=== PATIENT | female | born 1930 | race Caucasian/White ===

== ENCOUNTER → 2017-06-16 | Outpatient (REF) | payer MEDICARE ==
[2017-06-16 14:12] LABS: FOLATE > 24.0 NG/ML; VITAMIN B12 LEVEL > 2000 PG/ML
[2017-06-16 14:20] LABS: FERRITIN 34 NG/ML (8-252); PERCENT SATURATION 23.2 % (13.2-45.0); TOTAL IRON BINDING CAPACITY 366 UG/DL (250-450)
== END ==
LOC: M LAB REF 13:36
PROVIDERS: ATTEND Internal Medicine Nephrology
DX: N18.3 Chronic kidney disease, stage 3 (moderate) (principal); D53.9 Nutritional anemia, unspecified